=== PATIENT | female | born 1995 | race Two or more races ===

== ENCOUNTER 2019-10-23 19:27 | Emergency (ER) | payer OTHER ==
[~2019-10-23] VITALS: Ht 157.5 cm; Wt 54.4 kg
== END 2019-10-23 22:22 | disposition home or self-care (01) ==
LOC: ER 19:27 → EMR PED 19:39 → ER 19:39
DX: N39.0 Urinary tract infection, site not specified (principal); B34.9 Viral infection, unspecified; R50.9 Fever, unspecified